=== PATIENT | female | born 1955 | race American Indian/Alaskan Native ===

== ENCOUNTER 2018-03-31 05:34 | Day surgery (SDC) | payer BC ==
[~2018-03-31 05:34] MED LIST: Acetaminophen 500 MG Tab PO ONE
[2018-03-31] MEDS ORDERED: Bupivacaine 0.5%/EPINEPHrine 1:200,000 50 ML MDV ONE ×2 (06:28→06:46)
[2018-03-31] MEDS ORDERED: Dextrose 5%-Lactated Ringers 1,000 ML IV SCH (06:30)
[2018-03-31] MEDS ORDERED: Rocuronium 50 MG/5 ML Vial ONE (07:10)
[2018-03-31] MEDS ORDERED: Succinylcholine 200 MG/10 ML MDV ONE (07:10)
[2018-03-31] MEDS ORDERED: fentaNYL 250 MCG/5 ML SDV ONE (07:10)
[2018-03-31] MEDS ORDERED: Dexamethasone 4 MG/ML SDV ONE (07:10)
[2018-03-31] MEDS ORDERED: Ondansetron 4 MG/2 ML SDV ONE (07:10)
[2018-03-31] MEDS ORDERED: Propofol 200 MG/20 ML SDV ONE (07:10)
[2018-03-31] MEDS ORDERED: Ampicillin/Sulbactam Na 3 GM in Sodium Chloride 0.9% 100 ML IV ONE (07:15)
[2018-03-31] MEDS ORDERED: Hydrogen Peroxide 3% Top Soln 240 ML Bottle ONE (07:19)
[2018-03-31] MEDS ORDERED: Ketamine 500 MG/5 ML MDV IV SCH (07:30)
[2018-03-31] MEDS ORDERED: Atropine 0.4 MG/ML SDV ONE (07:43)
--- NOTE | 2018-04-01 10:28 | OR ---
DATE OF PROCEDURE: 03/31/2018 PREOPERATIVE DIAGNOSIS: [id number]. 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 OPERATIVE PROCEDURES: Anorectal examination under anesthesia with; 1. Anal fistulectomy (70427). 2. hemorrhoidectomy (83795). ANESTHESIA: General. DIRECTOR COUNCIL ON AGING: ZACH Cardona. 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 Plan is to proceed with an anal fistulotomy or fistulectomy. Potential risks of the procedure including bleeding, infection, possible problems with fecal incontinence following need of procedure, possible need for placement of a seton if it happens to be going above a significant amount of musculature, as well as the remote possibility of cardiopulmonary, septic, or hemorrhagic complications leading to were discussed, and the patient wishes to proceed. DETAILS OF PROCEDURE: The patient was taken to the operating room and placed in a supine position. After general endotracheal anesthesia was induced, she was converted to a lithotomy position and a perianal prep was performed. Initial examination confirmed the fistula located in the posterior midline. This was then examined with a lacrimal duct probe along with some injection of hydrogen peroxide through the tract. This confirmed a relatively low intersphincteric fistula traversing through the midportion of the internal sphincter. This would allow division of this with preservation of roughly 50% of the internal sphincter and division of none of the external sphincter. Given this, this area was then incised, and the fistula tract to a large extent removed for histologic evaluation. There was a hemorrhoidal column directly over this, which was also quite thickened and inflamed due to the inflammation adjacent to the hemorrhoid related to the fistula. This single column of mixed hemorrhoid was also excised along with the adjacent fistula material. At that point, no further problems were noted. Examination revealed no additional anorectal pathology. The area was anesthetized with 0.5% Marcaine. A dressing was applied. The patient was taken to the recovery room in a satisfactory condition. Bo Skaggs MD /[id number]
== END 2018-03-31 09:55 | disposition home or self-care (01) ==
LOC: JP.SDS 05:34
PROVIDERS: ATTEND Surgery
DX: K60.3 Anal fistula (principal); K64.4 Residual hemorrhoidal skin tags; K64.8 Other hemorrhoids; I10 Essential (primary) hypertension; E66.9 Obesity, unspecified; E78.5 Hyperlipidemia, unspecified; Z88.1 Allergy status to other antibiotic agents
CPT/HCPCS: 36415; 46258; 80048; 83735; 84100; 85027; A9270; J0295; J0330; J0461; J1100; J2405; J2704; J3010; J7030; J7042

== ENCOUNTER 2020-07-28 06:36 | Day surgery (SDC) | payer BC ==
[2020-07-28] MEDS ORDERED: Sodium Chloride 0.9% 1,000 ML IV SCH (07:00)
[2020-07-28] MEDS ORDERED: Midazolam 1 MG/ML 2 ML SDV ONE (07:19)
[2020-07-28] MEDS ORDERED: fentaNYL 100 MCG/2 ML SDV ONE (07:19)
[2020-07-28] MEDS ORDERED: Propofol 200 MG/20 ML SDV ONE (07:19)
--- NOTE | 2020-07-28 09:23 | OR ---
DATE OF PROCEDURE: 07/28/2020 SURGEON: Dino Keating MD PROCEDURE: Colonoscopy. FINDINGS: 1. Sigmoid colon polyp, approximately 5 mm, completely removed using cold biopsy forceps. 2. Diverticulosis, very mild without evidence of diverticulitis or bleeding. COMPLICATION: None. COIL TAPER: None. ANESTHESIA: MAC. PREOPERATIVE DIAGNOSIS: Screening colonoscopy. POSTOPERATIVE DIAGNOSIS: Screening colonoscopy. RISKS: Risks, benefits, alternatives, and limitations including, but not limited to infection, bleeding, and perforation were explained, and the patient wished to proceed. PROCEDURE IN DETAIL: The patient was placed in the left lateral decubitus position. Digital rectal exam was performed without abnormalities. The scope was introduced and advanced atraumatically to the ileocecal valve. A photo was taken of this. The scope was brought back through the ascending, transverse, descending colon, and retroflexed. No evidence of old or new blood. No masses. The aforementioned polyp was identified and completely removed. Diverticulosis was described as mild, limited to sigmoid colon only, without evidence of diverticulitis or bleeding. No abnormalities on retroflexion. No colitis. Greater than 10 minutes was spent removing the scope. The patient tolerated the procedure well. Dino Keating MD /[id number]
== END 2020-07-28 09:20 | disposition home or self-care (01) ==
LOC: JP.SDS 06:36
PROVIDERS: ATTEND Surgery
DX: Z12.11 Encounter for screening for malignant neoplasm of colon (principal); K63.5 Polyp of colon; K57.30 Diverticulosis of large intestine without perforation or abscess without bleeding; I10 Essential (primary) hypertension; Z88.8 Allergy status to other drugs, medicaments and biological substances
CPT/HCPCS: 45380; J2250; J2704; J3010; J7030; 88305